=== PATIENT | female | born 1990 | race Two or more races ===

== ENCOUNTER 2021-08-26 13:28 | Emergency (ER) | payer MEDICAID, OTHER ==
[~2021-08-26] VITALS: Ht 162.6 cm; Wt 65.8 kg
[2021-08-26 14:58] LABS: Basophils # (auto) 0 10 ^3/uL (0-0.2); Basophils % (auto) 0.4 % (0.0-2.0); Eosinophils # (auto) 0.1 10 ^3/uL (0-0.8); Eosinophils % (auto) 1.8 % (0.0-7.0); Hematocrit 38.1 % (36.0-46.0); Hemoglobin 13.5 g/dL (12.2-16.2); Lymphocytes # (auto) 1.7 10 ^3/uL (0.4-5.4); Lymphocytes % (auto) 20.6 % (10.0-50.0); Mean Corpuscular Hemoglobin 31.2 pg (28.0-32.0); Mean Corpuscular Hgb Conc. 35.3 g/dL (32.0-36.0); Mean Corpuscular Volume 88.3 fL (80.0-100.0); Monocytes # (auto) 0.6 10 ^3/uL (0-1.3); Monocytes % (auto) 7.8 % (0.0-12.0); Neutrophils # (auto) 5.6 10 ^3/uL (1.6-8.6); Neutrophils % (auto) 69.4 % (37.0-80.0); Red Blood Cells 4.32 10^6/uL (4.0-5.20); Red Cell Distribution Width 12.4 % (11.8-14.3); White Blood Cell 8.1 10^3/uL (4.4-10.8)
[2021-08-26 15:14] LABS: Albumin 4.1 g/dL (3.4-5.0); BUN/Creatinine Ratio 17.5; Calcium 9.7 mg/dL (8.5-10.1); Potassium 4.1 mmol/L (3.5-5.1)
[2021-08-26 15:17] LABS: Bilirubin, Total 0.4 mg/dL (0.2-1.0); Total Protein 7.3 g/dL (6.4-8.2)
[2021-08-26 20:00] VITALS: BP 118/72
== END 2021-08-26 20:17 | disposition home or self-care (01) ==
LOC: ER 13:28
DX: O20.8 Other hemorrhage in early pregnancy (principal); Z3A.01 Less than 8 weeks gestation of pregnancy
CPT/HCPCS: 36415; 76801; 76817; 80053; 84702; 85025; 86850; 86900; 86901

== ENCOUNTER 2023-01-06 14:45 | Observation (INO) | payer MEDICAID | END 2023-01-06 16:35 | disposition home or self-care (01) | LOC: UNDOADMOB 14:45 → LDRP 14:45 | PROVIDERS: ADMIT Obstetrics & Gynecology; ATTEND Obstetrics & Gynecology | DX: O62.9 Abnormality of forces of labor, unspecified (principal); Z3A.37 37 weeks gestation of pregnancy | CPT/HCPCS: 59025; 81002; 94760; G0378 ==